=== PATIENT | female | born 1950 | race Caucasian/White ===

== ENCOUNTER 2019-12-01 08:09 | Emergency (ER) | payer MEDICARE ==
[2019-12-01] MEDS ORDERED: Alum Hydroxide/Mag Hydroxide 15 ML, Lidocaine 2% 15 ML PO ONE ×2 (08:47)
--- NOTE | 2019-12-01 09:02 | EDM.PDOC ---
ED HPI GENERAL MEDICAL PROBLEM - General Chief Complaint: Abdominal Pain Stated Complaint: HEARTBURN ANXIETY Time Seen by Provider: 12/01/19 08:20 Source of Information: Reports: Patient History Limitations: Reports: No Limitations - History of Present Illness INITIAL COMMENTS - FREE TEXT/NARRATIVE: pt c/o recurrent heartburn X 2week worse at night was seen at clinic and prescr ibed Pepcid and Nexium, she does not think its helping, pt denies any abd pain or any other associated sx or medical concerns. upper mid abd Pain Score (Numeric/FACES): 8 - Related Data Allergies Allergy/AdvReac Type Severity Reaction Status Date / Time No Known Allergies Allergy Verified 12/01/19 08:16 Home Meds: Home Meds Aspirin [Halfprin] 81 mg PO DAILY 12/01/19 [History] Calcium Carb/Vitamin D3/Vit K1 [Calcium + Vit D & K Chew] 1 each PO BID 12/01/19 [History] Ciclopirox [Loprox 0.77% Crm] 0 gm TOP BID 12/01/19 [History] Citalopram Hydrobromide [Celexa] 10 mg PO DAILY 12/01/19 [History] Diphenoxylate HCl/Atropine [Lomotil] 1 tab PO Q6H PRN 12/01/19 [History] Esomeprazole [NexIUM] 40 mg PO DAILY 12/01/19 [History] Famotidine [Pepcid] 20 mg PO BID 12/01/19 [History] Fluticasone Propionate [Flonase] 16 gm .XX DAILY 12/01/19 [History] Multivitamin with Minerals [Multiple Vitamin] 1 tab PO DAILY 12/01/19 [History] Ranitidine [Zantac] 75 mg PO DAILY #30 tab 12/01/19 [Rx] Rizatriptan [Maxalt EDGE STITCHER] 10 mg PO ASDIRECTED PRN 12/01/19 [History] Triamterene/Hydrochlorothiazid [Triamterene-HCTZ 75-50 MG] 0.5 tab PO DAILY 12/01/19 [History] Zaleplon 5 mg PO BEDTIME 12/01/19 [History] atorvaSTATin [Lipitor] 10 mg PO DAILY 12/01/19 [History] Past Medical History Cardiovascular History: Reports: High Cholesterol, Hypertension Psychiatric History: Reports: Anxiety Endocrine/Metabolic History: Reports: Diabetes, Type II Social & Family History - Tobacco Use Smoking Status *Q: Never Smoker ED ROS GENERAL - Review of Systems Review Of Systems: See Below Constitutional: Reports: No Symptoms HEENT: Reports: No Symptoms Respiratory: Reports: No Symptoms Cardiovascular: Reports: No Symptoms GI/Abdominal: Reports: No Symptoms Musculoskeletal: Reports: No Symptoms Skin: Reports: No Symptoms Neurological: Reports: No Symptoms ED EXAM, GENERAL - Physical Exam Exam: See Below Exam Limited By: No Limitations General Appearance: Alert, No Apparent Distress Ears: Normal TMs Nose: Normal Inspection Throat/Mouth: Normal Inspection Head: Atraumatic Neck: Normal Inspection Respiratory/Chest: No Respiratory Distress, Lungs Clear, Normal Breath Sounds Cardiovascular: Normal Peripheral Pulses, Regular Rate, Rhythm GI/Abdominal: Normal Bowel Sounds, Soft, Non-Tender Back Exam: Normal Inspection, Full Range of Motion Extremities: Normal Inspection, Normal Range of Motion Neurological: Alert, Oriented, CN II-XII Intact Skin Exam: Warm Course - Vital Signs Text/Narrative:: pt has recurrent heartburn, she was given gi cocktail here , did ask her to stop the Pepcid , continue with Nexium and added Zantac. pt to follow with PCP also GI for EGD. Last Recorded V/S: Last Vital Signs Temp 36.6 C 12/01/19 08:09 Pulse 88 12/01/19 08:09 Resp 17 12/01/19 08:09 BP 141/80 H 12/01/19 08:09 Pulse Ox 99 12/01/19 08:09 - Orders/Labs/Meds Meds: Medications Discontinued Medications Generic Name Dose Route Start Last Admin Trade Name Yelena PRN Reason Stop Dose Admin Al Hydroxide/Mg Hydroxide 15 0 ml 12/01/19 08:47 12/01/19 08:50 ml/ Lidocaine HCl 15 ml PO 12/01/19 08:48 30 ml ONETIME ONE Administration Departure - Departure Time of Disposition: 09:17 Disposition: Home, Self-Care 01 Clinical Impression: GERD (gastroesophageal reflux disease) - Discharge Information Referrals: Jeovanny White MD [Primary Care Provider] - Sepsis Event Note (ED) - Evaluation Sepsis Screening Result: No Definite Risk - Focused Exam Vital Signs: Vital Signs Temp Pulse Resp BP Pulse Ox 12/01/19 08:09 36.6 C 88 17 141/80 H 99
== END 2019-12-01 09:40 | disposition home or self-care (01) ==
LOC: FB.ED 08:09
DX: K21.9 Gastro-esophageal reflux disease without esophagitis (principal); E78.00 Pure hypercholesterolemia, unspecified; I10 Essential (primary) hypertension; F41.9 Anxiety disorder, unspecified; E11.9 Type 2 diabetes mellitus without complications; Z79.82 Long term (current) use of aspirin; Z79.899 Other long term (current) drug therapy
CPT/HCPCS: 99283; A9270-GY

== ENCOUNTER 2019-12-20 06:40 | Day surgery (SDC) | payer MEDICARE ==
[2019-12-20] MEDS ORDERED: Propofol 200 MG/20 ML SDV IV ONE (06:41)
[2019-12-20] MEDS ORDERED: Lidocaine 2% 5 ML SDV INJECT ONE (06:41)
[2019-12-20] MEDS ORDERED: Lactated Ringers 1,000 ML IV SCH (07:00)
[2019-12-20] MEDS ORDERED: Sodium Chloride 0.9% 10 ML Syringe FLUSH PRN (07:00)
--- NOTE | 2019-12-20 08:47 | PCM.OPNOTE ---
- General Post-Op/Procedure Note Date of Surgery/Procedure: 12/20/19 Operative Procedure(s): egd with biopsy Findings: marked gastritis esophagitis Pre Op Diagnosis: hx of gerd Post-Op Diagnosis: gastritis and esophagitis [place] [facility] [place]geon: Chu Yousif Anesthesia Provider: Jeovanny Leal Pathology: stomach and distal esophagus Complications: None Condition: Good Free Text/Narrative:: see dictation
--- NOTE | 2019-12-20 12:35 | OR ---
DATE OF OPERATION: 12/20/2019 SURGEON: Chu Yousif MD PROCEDURE PERFORMED: Esophagogastroduodenoscopy with cold forceps biopsy. PREOPERATIVE DIAGNOSIS: History of symptomatic gastroesophageal reflux disease with unspecified esophagitis. POSTOPERATIVE DIAGNOSIS: Gastritis and esophagitis. INDICATIONS FOR PROCEDURE: This is a 69-year-old white female who is referred with the above-mentioned history. She was offered and accepted an EGD, as her symptoms were very tough to control. DESCRIPTION OF OPERATION: After an excellent IV sedation was administered, bite block was inserted. The flexible endoscope was passed without difficulty down the patient's esophagus into the stomach. The stomach was insufflated. Scope passed through the pylorus to the second portion of duodenum and then slowly withdrawn. The following findings were noted: The duodenum was essentially unremarkable. Stomach demonstrates marked gastritis throughout. Multiple biopsies were taken. GE junction measured at approximately 38 cm, and the Z- line appeared to be regular. The esophagus itself and the distal 2 cm above the esophagus demonstrates some evidence of some esophagitis. Otherwise, the esophagus was unremarkable. Matching Machine Operator biopsies were taken of the esophagus in this area. The stomach was deflated. Scope was removed. The patient tolerated the procedure well, was taken to Recovery. Results will be sent to her via letter. /[id number] TYRONE/ALMA
== END 2019-12-20 10:17 | disposition home or self-care (01) ==
LOC: FB.SDS 06:40
PROVIDERS: ATTEND Surgery
DX: K29.50 Unspecified chronic gastritis without bleeding (principal); K22.70 Barrett's esophagus without dysplasia; K31.89 Other diseases of stomach and duodenum; K21.00 Gastro-esophageal reflux disease with esophagitis, without bleeding; K21.9 Gastro-esophageal reflux disease without esophagitis; E11.9 Type 2 diabetes mellitus without complications; E78.5 Hyperlipidemia, unspecified; I10 Essential (primary) hypertension; Z90.49 Acquired absence of other specified parts of digestive tract; Z79.899 Other long term (current) drug therapy
CPT/HCPCS: 00731-QZ; 88305; 88313; 88342; J2001; J2704; J7120